=== PATIENT | male | born 1975 | race Caucasian/White ===

== ENCOUNTER 2016-11-05 04:23 | Emergency (ER) | payer BC ==
[2016-11-05 04:43] LABS: Urine Bilirubin Negative (NEGATIVE); Urine Ketone Negative (NEGATIVE); Urine Nitrite Negative (NEGATIVE); Urine Protein Negative (NEGATIVE); Urine Specific Gravity 1.025 SP.GR. (1.005-1.030); Urine Urobilinogen Normal (NORMAL)
[2016-11-05 05:02] LABS: Hematocrit 40.7 % (42.0-52.0); Hemoglobin 13.8 gm/dL (13.5-18.0); Mean Cell Volume 82.7 fl (78-100); Mean Corpuscular Hgb Conc 33.9 g/dl (32-36); Mean Platelet Volume 9.2 fl (6.0-9.5); Neutrophil # 6.8 K/mm3 (1.3-6.0); Neutrophil % 68.3 % (42-75.0); Platelet Count 163 K/mm3 (150-450); Red Blood Count 4.92 M/mm3 (4.7-6.0); Red Cell Distribution Width 14.1 % (11.5-14.0)
[2016-11-05 05:02] LABS: Urine Appearance Clear; Urine Bacteria None Seen; Urine Blood Negative /ul (NEGATIVE); Urine Color Pale Yellow; Urine RBC 0-5 /hpf (0-5); Urine WBC 0-5 /hpf (0-5)
--- NOTE | 2016-11-05 05:06 | ERNOTE ---
Abdominal HPI - General Chief Complaint: Abdominal Pain Time Seen by Provider: 11/05/16 04:42 Source: patient Exam Limitations: no limitations - Immun/Allergies/Home Medications Immunizatons: IMMUNIZATION HX Immunizations Up to Date Yes History of Influenza Vaccine Yes Hx Pneumococcal Vaccination No Allergies/Adverse Reactions: Allergies haloperidol [From Haldol] Allergy (Verified 11/05/16 04:33) prochlorperazine edisylate [From Compazine] Allergy (Verified 11/05/16 04:33) prochlorperazine maleate [From Compazine] Allergy (Verified 11/05/16 04:33) promethazine HCl [From Phenergan] Allergy (Verified 11/05/16 04:33) lorazepam [From Ativan] Adverse Reaction (Verified 11/05/16 04:33) Home Medications: HOME MEDICATIONS Naproxen Sodium [Aleve] 2 tab PO PRN PRN 11/05/16 [Last Taken Unknown] - History of Present Illness Narrative: Pt woke up around 3am with left sided abdominal pain. Pain increases with movement and position Timing: getting worse Quality: moderate, sharpness, stabbing Activities at Onset: sleep Modifying Factors - (Worsens): Present: other - bumps on the ride here Prior Abdominal Problems: Present: none Review of Systems - Review of Systems Constitutional: Absent: fever, chills EYE: Present: no symptoms reported ENT: Present: no symptoms reported Respiratory: Absent: shortness of breath Cardiology: Absent: chest pain, palpitations Gastrointestinal/Abdominal: Present: See HPI. Absent: vomiting, diarrhea Genitourinary: Present: other - has had kidney stones previously and this does not feel like that. Absent: dysuria Musculoskeletal: Present: no symptoms reported Skin: Present: no symptoms reported Neurological: Present: no symptoms reported Endocrine: Present: no symptoms reported Hematologic/Lymphatic: Present: no symptoms reported Psych: Present: no symptoms reported - Patient's Past Medical History Patient History - Medical: Kidney stone Patient History - Cardiac/Respiratory: No pertinent hx Patient History - Cancer: No Hx of Cancer Patient History - Surgical Procedures: Back Surgery, T & A Patient History - Other: None - Social History Living Situations: home Abuse History: No History of abuse Psych History: No pertinent hx Smoking Status: Former smoker Have you smoked in the past 12 months: No Alcohol Use: occasionally Drug Use: none - Immunizations Immunizations Up to Date: Yes Hx Pneumococcal Vaccination: No History of Influenza Vaccine: Yes Physical Exam - Physical Exam General Appearance: Present: wd/wn, alert, mild distress Eye Exam: Normal inspection: bilateral Ears, Nose, Throat: Present: normal ENT inspection Neck: Present: normal inspection, nontender, supple Respiratory: Present: no respiratory distress, normal breath sounds, lungs clear Cardiovascular/Chest: Present: regular rate, rhythm, no murmur Gastrointestinal/Abdominal: Present: normal bowel sounds, tenderness - left flank Back Exam: Present: normal inspection, normal range of motion, no CVA tenderness Extremity Exam: Present: normal inspection, non-tender, normal range of motion, no edema Neurological Exam: Present: alert, oriented, normal mood/affect, no motor/ sensory deficits Skin Exam: Present: normal color, warm/dry Lymphatic Exam: Present: no adenopathy ED Progress - Results and Orders Patient's Lab Results:: I have reviewed the patient's lab results. Results and Orders: Laboratory Tests 11/05/16 11/05/16 11/05/16 04:38 04:43 05:02 WBC 10.0 Hgb 13.8 Hct 40.7 L Plt Count 163 Sodium 140 Potassium 4.3 Chloride 108 H Carbon Dioxide 24.4 Anion Gap 11.9 BUN 22 Creatinine 1.14 Est GFR (Non-Af Amer) 75 D BUN/Creatinine Ratio 19.3 Random Glucose 110 Calcium 8.6 Total Bilirubin 0.4 AST 19 ALT 23 Alkaline Phosphatase 73 Total Protein 6.7 Albumin 3.4 Urine Color Pale yellow Urine Appearance Clear Urine pH 6.0 Ur Specific [place] 1.025 Urine Protein Negative Urine Glucose (UA) Negative Urine Ketones Negative Urine Blood Negative Urine Nitrate Negative Urine Bilirubin Negative Urine Urobilinogen Normal Ur Leukocyte Esterase Negative Urine RBC 0-5 Urine WBC 0-5 Ur Epithelial Cells 0-5 Urine Bacteria None seen Urine Culture Comments No culture indicated - Vital Signs Vital Signs: Vital Signs 11/05/16 04:26 Temperature 36.9 C Pulse Rate 74 Respiratory 18 Rate Blood Pressure 146/69 O2 Sat by Pulse 97 Oximetry - X-Ray X-Ray #1 X-Ray: abdomen Interpretation: Interp. by me X-ray Comments: no obstruction or free air. moderate stool retention - Progress/Reassessment Chief Complaint: Abdominal Pain Departure - Departure Clinical Impression: Abdominal muscle strain Qualifiers: Encounter type: initial encounter Qualified Code(s): S39.011A - Strain of muscle, fascia and tendon of abdomen, initial encounter Disposition: Home self-care Condition: Good Instructions: Cryotherapy, [id number], Muscle Strain, [id number], Heat Therapy Additional Instructions: You may use aleve 2 tabs twice a day for 1-2 weeks. Ice and heat may help. Avoid any movements that make it worse Referrals: Roman Diaz, [Primary Care Provider] -
[2016-11-05 05:16] LABS: Albumin * 3.4 gm/dl (3.4-5.0); Anion Gap 11.9 mmol/L (6.8-13.8); BUN/Creatinine Ratio 19.3 (9.0-21.6); Bilirubin, Total 0.4 mg/dL (0.0-1.1); Ca. Corrected For Albumin 8.8 mg/dL (8.4-10.2); Calcium * 8.6 mg/dL (7.9-10.9); Carbon Dioxide 24.4 mmol/L (24-32.6); Potassium 4.3 mmol/L (3.4-4.6); Total Protein 6.7 gm/dL (6.2-8.2)
[2016-11-05] MEDS ORDERED: NORMAL SALINE 1,000 ML IV ONE (05:38)
[2016-11-05] MEDS ORDERED: KETOROLAC TROMETHAMINE 30 MG/ML VIAL IV ONE (05:38)
--- OUTSIDE RECORDS SUMMARY | 2016-11-05 05:39 | XMS REPORT | Summary of Care ---
:1975 Author Organization [facility] Address [address] [place] [id number] Care Team Providers Name Role Phone Physician, Primary Care Primary Care Physician Unavailable Encounter Date(s): 06/30/16 - 06/30/[address] [address] Discharge Disposition: 01 Discharged to Home or Self Care Attending Physician: Yury Valadez MD Admitting Physician: Yury Valadez MD Vital Signs No data available for this section Problem List Condition Effective Dates Status Health Status Informant Nephrolithiasis(Confirmed) Active Feeling of incomplete bladder Active emptying(Confirmed) Allergies, Adverse Reactions, Alerts Substance Reaction Severity Status Compazine hallucinations Active Phenergan hallucinations Active Medications Medrol Dosepak 4 mg oral tablet 1 packet(s), Oral, Per Package Label, as directed on package labeling, # 21 tab( s), 0 Refill(s), Start Date: 02/12/16 13:09:00 CDT, Pharmacy: [id number] Start Date: 02/12/16 Stop Date: 06/30/16 Status: CompletedTessalon 200 mg oral capsule 1 cap(s), Oral, TID, # 21 cap(s), 0 Refill(s), Start Date: 02/12/16 13:09:00 CDT , Pharmacy: [facility] [id number] Start Date: 02/12/16 Stop Date: 06/30/16 Status: CompletedZithromax Z-Edu 250 mg oral tablet 1 packet(s), Oral, Per Package Label, as directed on package labeling, # 6 tab(s ), 0 Refill(s), Start Date: 06/07/15 9:35:00 [employer] Start Date: 06/07/15 Stop Date: 01/07/16 Status: Discontinued Results Patient Viewable Results Most recent to oldest [Reference Range]: 1 UA Color [Yellow] Yellow (06/30/16 8:37 AM) Urine Clarity [Clear] Clear (06/30/16 8:37 AM) Specific [place] [1.000-1.060] 1.025 (06/30/16 8:37 AM) Urine pH [5-8] 6 (06/30/16 8:37 AM) Ketones Negative (06/30/16 8:37 AM) Bilirubin [Negative] Negative (06/30/16 8:37 AM) Urine Protein [Negative] Negative (06/30/16 8:37 AM) Glucose [Negative] Negative (06/30/16 8:37 AM) Urine HGB Trace *NA* (06/30/16 8:37 AM) Urobilinogen <2.0 (06/30/16 8:37 AM) Nitrite [Negative] Negative (06/30/16 8:37 AM) Leuk Esterase [Negative] Negative (06/30/16 8:37 AM) Urine WBC [0-5] 0-5 (06/30/16 8:37 AM) Urine RBC [0-2] 0-2 (06/30/16 8:37 AM) Squamous Epi [0-5] None Seen (06/30/16 8:37 AM) Mucus 1+ (06/30/16 8:37 AM) Immunizations No data available for this section Procedures Procedure Date Related Diagnosis Body Site Fracture, tibial plateau Laminectomy approach to lumbar spine Lumbar discectomy Tonsillectomy and adenoidectomy Social History No data available for this section Assessment and Plan No data available for this section
--- OUTSIDE RECORDS SUMMARY | 2016-11-05 05:39 | XMS REPORT | Continuity of Care Document ---
:1975 Author Organization [facility] ([facility]) Address [address] [place] [address] Phone [phone] Care Team Providers Name Role Phone Real Contreras-Physicians & Primary Care Provider [phone] Source Comments This disclosure is being made pursuant to the Care Everywhere program, applicable federal and state laws, and may not contain all informaitonavailable regarding this patient.[facility] ([facility]) Active Allergies and Adverse Reactions Allergen Noted Date Severity Reactions Comments Cephalexin 09/16/2011 Diarrhea Haloperidol Lactate 01/02/2010 Agitation Promethazine 01/02/2010 Agitation Current Medications Prescription Sig. Disp. Refills Start Date End Date Status Naproxen Sodium (ALEVE) Take 220-440 mg by Active 220 mg Tab mouth as needed. acetaminophen (TYLENOL Take 1,000 mg by Active EXTRA STRENGTH) 500 mg mouth as needed. tablet ibuprofen (MOTRIN) 200 Take 800 mg by mouth Active mg tablet every 6 hours as needed. citalopram (CELEXA) 20 Take 20 mg by mouth Active mg tablet daily. 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
--- OUTSIDE RECORDS SUMMARY | 2016-11-05 05:39 | XMS REPORT | Summary of Care ---
:1975 Author Organization [facility] Address [address] [place] [address] Care Team Providers Name Role Phone Physician, Primary Care Primary Care Physician Unavailable Encounter Date(s): 06/30/16 - 06/30/16 [facility] [address] [facility] [place], [place] [address] Discharge Diagnosis: Feeling of incomplete bladder emptying Discharge Diagnosis: Nephrolithiasis Discharge Disposition: Discharged to Home or Self Care Attending Physician: Yury Valadez MD Referring Physician: Yury Valadez MD Vital Signs Most recent to oldest [Reference Range]: 1 Temperature Temporal Artery [36.0-38.0 DegC] 36.6 DegC (06/30/16 8:02 AM) Peripheral Pulse Rate [60-100 bpm] 85 bpm (06/30/16 8:02 AM) Blood Pressure [90-130/60-90 mmHg] 140/75mmHg *HI* (06/30/16 8:02 AM) Mean Arterial Pressure, Cuff 97 mmHg (06/30/16 8:02 AM) Height/Length Measured 190 cm (06/30/16 8:02 AM) Weight Dosing 151 kg (06/30/16 8:02 AM) Problem List Condition Effective Dates Status Health Status Informant Nephrolithiasis(Confirmed) Active Feeling of incomplete bladder Active emptying(Confirmed) Allergies, Adverse Reactions, Alerts Substance Reaction Severity Status Compazine hallucinations Active Phenergan hallucinations Active Medications Medrol Dosepak 4 mg oral tablet 1 packet(s), Oral, Per Package Label, as directed on package labeling, # 21 tab( s), 0 Refill(s), Start Date: 02/12/16 13:09:00 CDT, Pharmacy: [facility] [id number] Start Date: 02/12/16 Stop Date: 06/30/16 Status: CompletedTessalon 200 mg oral capsule 1 cap(s), Oral, TID, # 21 cap(s), 0 Refill(s), Start Date: 02/12/16 13:09:00 CDT , Pharmacy: [id number] [id number] Start Date: 02/12/16 Stop Date: 06/30/16 Status: CompletedZithromax Z-Edu 250 mg oral tablet 1 packet(s), Oral, Per Package Label, as directed on package labeling, # 6 tab(s ), 0 Refill(s), Start Date: 06/07/15 9:35:00 [employer] Start Date: 06/07/15 Stop Date: 01/07/16 Status: Discontinued Results No data available for this section Immunizations No data available for this section Procedures Procedure Date Related Diagnosis Body Site Fracture, tibial plateau Laminectomy approach to lumbar spine Lumbar discectomy Tonsillectomy and adenoidectomy Social History No data available for this section Assessment and Plan No data available for this section
--- OUTSIDE RECORDS SUMMARY | 2016-11-05 05:40 | XMS REPORT | Summary of Care ---
:1975 Author Organization [facility] Address [facility] [place] [address]- Care Team Providers Name Role Phone Roman Diaz Primary Care Physician Encounter Date(s): 07/07/16 - 07/07/[address] [address] Discharge Disposition: 01 Discharged to Home or Self Care Attending Physician: Roman Diaz DO Admitting Physician: Roman Diaz DO Vital Signs No data available for this [...] Refill(s), Start Date: 02/12/16 13:09:00 CDT, Pharmacy: [facility] [id number] Special Instructions: as directed on package labeling Start Date: 02/12/16 Stop Date: 06/30/16 Status: CompletedTessalon 200 mg oral capsule 1 cap(s), Oral, TID, # 21 cap(s), 0 Refill(s), Start Date: 02/12/16 13:09:00 CDT , Pharmacy: [facility] [id number] Start Date: 02/12/16 Stop Date: 06/30/16 Status: CompletedZithromax Z-Edu 250 mg oral tablet 1 packet(s), Oral, Per Package Label, as directed on package labeling, # 6 tab(s ), 0 Refill(s), Start Date: 06/07/15 9:35:00 STABLE [employer] Special Instructions: as directed on package labeling Start Date: 06/07/15 Stop Date: 01/07/16 Status: Discontinued Results Patient Viewable Results Most recent to oldest [Reference Range]: 1 WBC [4.8-10.8 thou/mm3] 4.8 thou/mm3 (07/07/16 8:53 AM) RBC [4.60-6.00 Mil/mm3] 5.27 Mil/mm3 (07/07/16 8:53 AM) Hgb [14.0-18.0 g/dL] 14.9 g/dL (07/07/16 8:53 AM) Hct [42.0-52.0 %] 44.2 % (07/07/16 8:53 AM) MCV [80.0-94.0 fL] 83.9 fL (07/07/16 8:53 AM) MCH [25.0-38.0 pg/cell] 28.3 pg/cell (07/07/16 8:53 AM) MCHC [31.0-37.0 g/dL] 33.7 g/dL (07/07/16 8:53 AM) RDW [1.0-48.0 fL] 41.0 fL (07/07/16 8:53 AM) Platelet [130-400 thou/mm3] 198 thou/mm3 (07/07/16 8:53 AM) Neutrophils % Auto [50.0-75.0 %] 47.3 % *LOW* (07/07/16 8:53 AM) Immature Granulocyte Auto [0.1-2.0 %] 0.2 % (07/07/16 8:53 AM) Lymphocytes % Auto [15.0-41.0 %] 35.9 % (07/07/16 8:53 AM) Monocytes % Auto [2.0-10.0 %] 14.1 % *HI* (07/07/16 8:53 AM) Eosinophils % Auto [0.0-6.0 %] 2.1 % (07/07/16 8:53 AM) Basophil % Auto [0.0-1.0 %] 0.4 % (07/07/16 8:53 AM) Neutrophils Absolute [1.5-5.9 thou/mm3] 2.3 thou/mm3 (07/07/16 8:53 AM) Immature Gran Absolute [0.01-0.03 thou/mm3] 0.01 thou/mm3 (07/07/16 8:53 AM) Lymphocytes Absolute [1.5-4.0 thou/mm3] 1.7 thou/mm3 (07/07/16 8:53 AM) Monocytes Absolute [0.0-0.9 thou/mm3] 0.7 thou/mm3 (07/07/16 8:53 AM) Eosinophil Absolute [0.0-0.7 thou/mm3] 0.1 thou/mm3 (07/07/16 8:53 AM) Basophil Absolute [0.0-0.2 thou/mm3] 0.0 thou/mm3 (07/07/16 8:53 AM) Sodium Lvl [135-144 mEq/L] 136 mEq/L (07/07/16 8:53 AM) Potassium Lvl [3.3-4.8 mEq/L] 4.8 mEq/L (07/07/16 8:53 AM) Chloride Lvl [98-107 mEq/L] 103 mEq/L (07/07/16 8:53 AM) Bicarbonate Lvl [22-30 mmol/L] 22 mmol/L (07/07/16 8:53 AM) Anion Gap [10.0-20.0] 15.8 (07/07/16 8:53 AM) Glucose Lvl [70-108 mg/dL] 112 mg/dL *HI* (07/07/16 8:53 AM) BUN [7-21 mg/dL] 18 mg/dL (07/07/16 8:53 AM) Creatinine Lvl [0.50-1.20 mg/dL] 1.07 mg/dL (07/07/16 8:53 AM) BUN/Creat Ratio 16.8 *NA* (07/07/16 8:53 AM) eGFR AA [>=60] >60 (07/07/16 8:53 AM) eGFR YARELY [>=60] >60 (07/07/16 8:53 AM) Calcium Lvl [8.6-10.2 mg/dL] 8.7 mg/dL (07/07/16 8:53 AM) Total Protein [6.4-8.3 g/dL] 6.8 g/dL (07/07/16 8:53 AM) Albumin Lvl [3.5-5.2 g/dL] 4.3 g/dL (07/07/16 8:53 AM) Globulin 2.5 *NA* (07/07/16 8:53 AM) A/G Ratio [0.9-1.8] 1.7 (07/07/16 8:53 AM) Bilirubin Total [0.1-1.0 mg/dL] 0.2 mg/dL (07/07/16 8:53 AM) Alkaline Phosphatase [39-129 unit/L] 73 unit/L (07/07/16 8:53 AM) AST [0-39 unit/L] 21 unit/L (07/07/16 8:53 AM) ALT [0-40 unit/L] 19 unit/L (07/07/16 8:53 AM) Cholesterol Total [0-200 mg/dL] 127 mg/dL (07/07/16 8:53 AM) Triglyceride [0-199 mg/dL] 108 mg/dL (07/07/16 8:53 AM) HDL Cholesterol [40-100 mg/dL] 35 mg/dL *LOW* (07/07/16 8:53 AM) LDL Cholesterol (Direct) [0-129 mg/dL] 78 mg/dL (07/07/16 8:53 AM) Non HDL Cholesterol [0-159 mg/dL] 92 mg/dL (07/07/16 8:53 AM) Estimated Creatinine Clearance 139.34 mL/min (07/07/16 10:49 AM) Immunizations No data available for this section Procedures Procedure Date Related Diagnosis Body Site Fracture, tibial plateau Laminectomy approach to lumbar spine Lumbar discectomy Tonsillectomy and adenoidectomy Social History No data available for this section Assessment and Plan No data available for this section
[2016-11-05] MEDS ORDERED: KETOROLAC TROMETHAMINE 30 MG/ML VIAL ONE (06:00)
[2016-11-05 06:21] VITALS: BP 131/73
== END 2016-11-05 06:45 | disposition home or self-care (01) ==
LOC: ER 04:23
DX: S39.011A Strain of muscle, fascia and tendon of abdomen, initial encounter (principal)